=== PATIENT | female | born 1995 | race Caucasian/White ===

== ENCOUNTER 2018-08-19 19:27 | Emergency (ER) | payer BC ==
[~2018-08-19] VITALS: Ht 160 cm; Wt 59.9 kg
--- NOTE | 2018-08-19 19:30 | NUR ---
PT BIB SELF C/O ACID REFLEX/CHEST PAIN. PT STATES SHE WAS EATING CHICKEN X3 HOURS AGO AND STARTED GETTING A SHARP/BURNING SENSATION IN HER CHEST UP INTO HER THROAT; +NAUSEA. PT STATES 6/10 SHARP/BURNING CHEST PAIN. --BREATHING EQUAL AND UNLABORED; +PATENT AIRWAY. SKIN WARM, DRY AND INTACT. PT ACTING APPROPRIATLY. PT IN BED; BED IN LOWER LOCKED POSITION. ER MD AWARE OF PT STATUS. WILL CONTINUE TO MONITOR. PMH: DENIES RX: DENIES
--- NOTE | 2018-08-19 19:30 | NUR ---
AMBULATORY TO ED 08
[2018-08-19 19:35] VITALS: BP 140/97
[2018-08-19] MEDS ORDERED: ONDANSETRON 4 MG ODT PO ONE (19:45)
--- NOTE | 2018-08-19 19:54 | NUR ---
X-RAY AT BEDSIDE.
[2018-08-19] MEDS ORDERED: DICYCLOMINE HCL LIQUID 20 MG, ALUMINUM HYD/MAG/SIMETHICONE 30 ML, LIDOCAINE VISCOUS 2% ... PO ONE ×3 (21:15)
[2018-08-19 21:35] VITALS: BP 133/81
--- NOTE | 2018-08-19 21:35 | NUR ---
Patient discharged with v/s stable. Written and verbal after care instructions given and explained. Patient alert, oriented and verbalized understanding of instructions. Ambulatory with steady gait. All questions addressed prior to discharge. ID band removed. Patient advised to follow up with PMD. Rx of OMEPRAZOLE given. Patient educated on indication of medication including possible reaction and side effects. Opportunity to ask questions provided and answered.
== END 2018-08-19 21:35 | disposition home or self-care (01) ==
LOC: MED 19:27
DX: K22.4 Dyskinesia of esophagus (principal); K21.9 Gastro-esophageal reflux disease without esophagitis; J45.909 Unspecified asthma, uncomplicated; Z88.1 Allergy status to other antibiotic agents
CPT/HCPCS: 71045; 93005; 99283; Q0092; Q0162